=== PATIENT | female | born 1955 | race Caucasian/White ===

== ENCOUNTER 2018-04-02 07:26 | Inpatient (IN) | payer BC, OTHER ==
[~2018-04-02] VITALS: Ht 160 cm; Wt 86.3 kg
--- NOTE | 2018-04-02 07:26 | NUR ---
Pt BIB [facility] as transfer from [place]. Pt initially c/o SOB at home x3 days with hx of asthma and DM. Pt in severe resp distress on arrival to [facility]. Pt was intubated at 0255 with 8.0 ETT. Pt diagnosed with Multifocal PNA as well as DKA, then transfered to [facility]. On arrival to [facility] ED pt incontinent of liquid stool. Large amount stool cleaned from pt and all linens changed. Stool sample walked to lab. Pt with coffee ground drainage noted from NG tube as well. NG tube placement confirmed and connected to low continuous suction per order. Pt's cross draining tea colored urine, sample sent to lab. Pt with multiple small wounds diffusely over bilat legs, perineum and buttocks. Pt appears to be tolerating the vent well, lung sounds coarse at the bases. Pt appears well sedated on arrival. Report from REACH RN. Dr. Mcdaniel at bedside to evaluate pt.
[2018-04-02] MEDS ORDERED: MIDAZOLAM 1 MG/ML, 2ML ONE (07:39)
[2018-04-02] MEDS ORDERED: VECURONIUM 10 MG ONE (07:39)
[2018-04-02] MEDS ORDERED: PROPOFOL 100 ML IV ONE (07:39)
[2018-04-02] MEDS ORDERED: PROPOFOL 100 ML IV PRN (07:42)
[2018-04-02] MEDS ORDERED: VECURONIUM 10 MG IVPush ONE (08:00)
[2018-04-02] MEDS ORDERED: MIDAZOLAM 1 MG/ML, 5ML IVP ONE (08:00)
[2018-04-02] MEDS ORDERED: SODIUM CHLORIDE FLUSH 10ML SYR IVF ONE (08:00)
[2018-04-02] MEDS ORDERED: ATOR20TA PO (08:33)
[2018-04-02] MEDS ORDERED: SPIR100T4 PO (08:33)
[2018-04-02] MEDS ORDERED: INSU100V11 SQ (08:33)
[2018-04-02] MEDS ORDERED: INSU100I43 SQ (08:33)
[2018-04-02] MEDS ORDERED: LEVO125T5 PO (08:33)
[2018-04-02] MEDS ORDERED: FLUO40CA2 PO (08:33)
[2018-04-02] MEDS ORDERED: LISI40TA PO (08:33)
[2018-04-02] MEDS ORDERED: LOSA50TA14 PO (08:33)
[2018-04-02 08:43] LABS: AMPHETAMINE SCREEN, URINE Negative (Negative); BARBITURATE SCREEN, URINE Negative (Negative); BENZODIAZEPINE SCREEN, URINE Positive (Negative); CANNABINOID SCREEN, URINE Negative (Negative); COCAINE SCREEN, URINE Negative (Negative); METHADONE SCREEN, URINE Negative (Negative); OPIATE SCREEN, URINE Negative (Negative)
--- NOTE | 2018-04-02 08:43 | NUR ---
Med requested from pharmacy. Pt resting in bed with eyes closed, appears well sedated, tolerating vent well.
[2018-04-02 08:44] LABS: CULTURE INDICATED? YES; MICROSCOPIC INDICATED
[2018-04-02] MEDS ORDERED: PANTOPRAZOLE 80 MG in SODIUM CHLORIDE 0.9% 50 ML IVPB ONE (09:00)
[2018-04-02] MEDS ORDERED: PANTOPRAZOLE 80 MG in SODIUM CHLORIDE 0.9% 100 ML IV SCH (09:00)
--- NOTE | 2018-04-02 09:05 | NUR ---
Spoke with lab sample room regarding blood samples. Lab is sending second laborer cook house to attempt to collect blood samples.
--- NOTE | 2018-04-02 09:13 | NUR ---
Discussed pt's FSBS with Dr. Mcdaniel. No insulin gtt needed per Dr. Mcdaniel. Pt continues resting in bed, NADN, tolerating vent well.
[2018-04-02 09:15] LABS: CLOSTRIDIUM DIFFICILE ANTIGEN NEGATIVE; CLOSTRIDIUM DIFFICILE TOXIN NEGATIVE (Negative)
--- NOTE | 2018-04-02 09:26 | NUR ---
information technology director at bedside to attempt to collect blood sample.
--- NOTE | 2018-04-02 09:49 | NUR ---
Report called to Taylor RETANA in CCU. Floor ready for pt transport.
[2018-04-02] MEDS ORDERED: SODIUM CHLORIDE 0.9% 1,000 ML IV SCH (09:54)
--- NOTE | 2018-04-02 09:56 | NUR ---
Pt appears restless in bed. Propofol gtt increased per MAR. pharmacy picking tech successful at obtaining blood sample.
[2018-04-02] MEDS ORDERED: POLYETHYLENE GLYCOL 17 GM PACKET PO PRN (10:00)
[2018-04-02] MEDS ORDERED: BISACODYL 10 MG SUPP PR PRN (10:00)
[2018-04-02] MEDS ORDERED: DOCUSATE 100 MG CAPSULE PO PRN (10:00)
[2018-04-02 10:15] LABS: MD YES; MEAN CORPUSCULAR HEMOGLOBIN 29.6 pg (27.0-34.8); MEAN CORPUSCULAR HGB CONC 32.9 g/dL (32.4-35.8); MEAN PLATELET VOLUME 9.2 fL (7.4-10.4); PLATELET COUNT 392 x10^3/uL (130-400); RED BLOOD COUNT 5.27 x10^6/uL (3.82-5.3); RED CELL DISTRIBUTION WIDTH 13.4 % (9.6-15.2)
[2018-04-02 10:16] LABS: ALANINE AMINOTRANSFERASE 93 U/L (12-78); ALBUMIN 2.8 g/dL (3.4-5.0); ANION GAP 13 mmol/L (5-15); CALCIUM 8.1 mg/dL (8.5-10.1); CHLORIDE 112 mmol/L (98-107); CREATININE 1.91 mg/dL (0.55-1.02)
[2018-04-02 10:17] LABS: BAND#(MANUAL) 1.54 x10^3/uL; BANDS%(MANUAL) 4 % (0-7); LYMPH#(MANUAL) 0.39 x10^3/uL (1-3.4); LYMPHS% (MANUAL) 1 % (22-44); MONOS#(MANUAL) 1.54 x10^3/uL (0.3-2.7); MONOS% (MANUAL) 4 % (2-9); SEG#(MANUAL) 35.04 x10^3/uL (1.8-6.8); SEGS% (MANUAL) 91 % (42-75)
[2018-04-02 10:18] LABS: ALKALINE PHOSPHATASE 182 U/L (45-117); BILIRUBIN,TOTAL 0.6 mg/dL (0.2-1.0); TOTAL PROTEIN 6.8 g/dL (6.4-8.2)
[2018-04-02 10:18] LABS: <PLATELET ESTIMATE> ADEQUATE; <PLT MORPHOLOGY> NORMAL PLT MORPH; <RBC MORPHOLOGY> NORMAL
[2018-04-02] MEDS ORDERED: SODIUM BICARB 8.4%, 50ML SYRINGE ONE (10:49)
[2018-04-02] MEDS ORDERED: CALCIUM GLUCONATE 9.2 MEQ in SODIUM CHLORIDE 0.9% 100 ML IV STA (10:53)
[2018-04-02] MEDS ORDERED: SODIUM BICARBONATE 1 MEQ/ML, 50ML VIAL IVPush ONE ×2 (11:00)
[2018-04-02] MEDS: REGULAR INSULIN 62.5 UNITS in SODIUM CHLORIDE 0.9% 249.375 ML IV PRN ×2 (11:28→20:18)
[2018-04-02] MEDS ORDERED: NOREPINEPHRINE 4 MG in SODIUM CHLORIDE 0.9% 246 ML IV PRN ×2 (11:54→12:30)
[2018-04-02] MEDS ORDERED: PHARMACY MAY ADJ FOR RENAL FX MC SCH (12:00)
[2018-04-02 12:23] LABS: ANION GAP 10 mmol/L (5-15); CALCIUM 8.7 mg/dL (8.5-10.1); CHLORIDE 110 mmol/L (98-107); CREATININE 1.97 mg/dL (0.55-1.02)
[2018-04-02] MEDS: SODIUM BICARBONATE 8.4% 150 MEQ in DEXTROSE 5% 1,000 ML IV SCH ×2 (12:28→21:29)
[2018-04-02] MEDS: DOXYCYCLINE 100 MG in DEXTROSE 5% 250 ML IV SCH ×2 (12:28→23:35)
[2018-04-02] MEDS ORDERED: VASOPRESSIN 100 UNIT in SODIUM CHLORIDE 0.9% 495 ML IV PRN (12:30)
[2018-04-02 12:46] LABS: RAPID INFLUENZA A Negative (Negative); RAPID INFLUENZA B Negative (Negative)
[2018-04-02] MEDS: methylPREDNISolone SOD SUCC 125 MG/2 ML IVPush SCH ×3 (13:05→21:28)
[2018-04-02] MEDS: CEFTRIAXONE PMX 2GM/50ML 50 ML IV SCH (15:45)
[2018-04-02 16:33] LABS: ANION GAP 9 mmol/L (5-15); CALCIUM 7.8 mg/dL (8.5-10.1); CHLORIDE 109 mmol/L (98-107); CREATININE 1.81 mg/dL (0.55-1.02)
[2018-04-02 17:17] VITALS: BP 137/68
[2018-04-02] MEDS: PROPOFOL 100 ML IV PRN (17:43)
[2018-04-02] MEDS: PANTOPRAZOLE 80 MG in SODIUM CHLORIDE 0.9% 100 ML IV SCH (19:40)
[2018-04-02 20:42] LABS: ANION GAP 8 mmol/L (5-15); CALCIUM 7.8 mg/dL (8.5-10.1); CHLORIDE 111 mmol/L (98-107); CREATININE 1.55 mg/dL (0.55-1.02)
[2018-04-02] MEDS ORDERED: SODIUM CHLORIDE 0.9% 1,000ML IVBOLUS ONE (22:00)
[2018-04-03] MEDS: MORPHINE SULFATE 4 MG/ML, 1ML IVPush PRN ×3 (00:08→10:51)
[2018-04-03] MEDS: LIDOCAINE-MPF 1%, 2ML ENDO PRN ×3 (00:20→21:40)
[2018-04-03 00:41] LABS: ANION GAP 8 mmol/L (5-15); CALCIUM 7.4 mg/dL (8.5-10.1); CHLORIDE 113 mmol/L (98-107); CREATININE 1.22 mg/dL (0.55-1.02)
[2018-04-03] MEDS: REGULAR INSULIN 62.5 UNITS in SODIUM CHLORIDE 0.9% 249.375 ML IV PRN ×2 (01:26→12:54)
[2018-04-03] MEDS: PROPOFOL 100 ML IV PRN ×5 (01:26→19:36)
[2018-04-03 04:00] VITALS: BP 138/66
[2018-04-03] MEDS: methylPREDNISolone SOD SUCC 125 MG/2 ML IVPush SCH ×4 (04:10→21:45)
[2018-04-03 04:47] LABS: MEAN CORPUSCULAR HEMOGLOBIN 30.6 pg (27.0-34.8); MEAN CORPUSCULAR HGB CONC 34.8 g/dL (32.4-35.8); MEAN PLATELET VOLUME 9.5 fL (7.4-10.4); PLATELET COUNT 291 x10^3/uL (130-400); RED BLOOD COUNT 3.75 x10^6/uL (3.82-5.3); RED CELL DISTRIBUTION WIDTH 13.4 % (9.6-15.2)
[2018-04-03 04:51] LABS: ALANINE AMINOTRANSFERASE 53 U/L (12-78); ALBUMIN 2.1 g/dL (3.4-5.0); ANION GAP 7 mmol/L (5-15); CALCIUM 7.9 mg/dL (8.5-10.1); CHLORIDE 110 mmol/L (98-107); CREATININE 1.05 mg/dL (0.55-1.02)
[2018-04-03 05:02] LABS: ALKALINE PHOSPHATASE 104 U/L (45-117); BILIRUBIN,TOTAL 0.2 mg/dL (0.2-1.0); THYROID STIMULATING HORMONE 0.211 mIU/L (0.358-3.740); TOTAL PROTEIN 5.3 g/dL (6.4-8.2)
[2018-04-03] MEDS: PANTOPRAZOLE 80 MG in SODIUM CHLORIDE 0.9% 100 ML IV SCH ×2 (05:20→17:16)
[2018-04-03 05:45] LABS: MD YES
[2018-04-03 05:46] LABS: BAND#(MANUAL) 0.46 x10^3/uL; BANDS%(MANUAL) 2 % (0-7); MONOS#(MANUAL) 0.46 x10^3/uL (0.3-2.7); MONOS% (MANUAL) 2 % (2-9)
[2018-04-03 05:47] LABS: <PLATELET ESTIMATE> ADEQUATE; <PLT MORPHOLOGY> NORMAL PLT MORPH; <RBC MORPHOLOGY> NORMAL; LYMPH#(MANUAL) 0.68 x10^3/uL (1-3.4); LYMPHS% (MANUAL) 3 % (22-44); SEGS% (MANUAL) 93 % (42-75)
[2018-04-03] MEDS: SODIUM BICARBONATE 8.4% 150 MEQ in DEXTROSE 5% 1,000 ML IV SCH (08:09)
[2018-04-03] MEDS: CEFTRIAXONE PMX 2GM/50ML 50 ML IV SCH (09:40)
[2018-04-03 10:15] LABS: ANION GAP 9 mmol/L (5-15); CALCIUM 7.9 mg/dL (8.5-10.1); CHLORIDE 108 mmol/L (98-107); CREATININE 1.04 mg/dL (0.55-1.02)
[2018-04-03] MEDS: DOXYCYCLINE 100 MG in DEXTROSE 5% 250 ML IV SCH ×2 (10:54→23:18)
[2018-04-03] MEDS ORDERED: SODIUM BICARBONATE 8.4% 150 MEQ in DEXTROSE 5% 1,000 ML IV SCH (11:00)
[2018-04-03] MEDS ORDERED: MAGNESIUM SULFATE 4 GM in SODIUM CHLORIDE 0.9% 100 ML IV ONE (15:30)
[2018-04-03] MEDS ORDERED: MAGNESIUM SULFATE PMX 4GM/100M 100 ML IVPB ONE (15:30)
[2018-04-03] MEDS: D5%-0.45% NACL 1,000 ML IV SCH (15:40)
[2018-04-03] MEDS ORDERED: GLUCAGON 1 MG IM PRN (19:30)
[2018-04-03] MEDS ORDERED: DEXTROSE 4 GM TAB.CHEW PO PRN (19:30)
[2018-04-03] MEDS: INSULIN LISPRO 100 UNITS/ML, PEN SQ-INSULIN SCH (19:30)
[2018-04-03] MEDS ORDERED: DEXTROSE 50%, 50ML SYRINGE IVPush PRN (19:30)
[2018-04-03] MEDS: SODIUM CHLORIDE FLUSH 10ML SYR IVF SCH (20:28)
[2018-04-03] MEDS: INSULIN GLARGINE 100 UNITS/ML, PEN SQ-INSULIN SCH (20:28)
[2018-04-03] MEDS: FENTANYL PF 100 MCG/2ML IVPush PRN (21:45)
[2018-04-04] MEDS: LIDOCAINE-MPF 1%, 2ML ENDO PRN ×4 (01:00→11:18)
[2018-04-04] MEDS: FENTANYL PF 100 MCG/2ML IVPush PRN ×3 (01:03→16:15)
[2018-04-04] MEDS: PROPOFOL 100 ML IV PRN ×6 (01:18→22:23)
[2018-04-04] MEDS: INSULIN LISPRO 100 UNITS/ML, PEN SQ-INSULIN SCH ×6 (02:02→22:23)
[2018-04-04] MEDS: PANTOPRAZOLE 80 MG in SODIUM CHLORIDE 0.9% 100 ML IV SCH ×3 (02:51→22:58)
[2018-04-04] MEDS: methylPREDNISolone SOD SUCC 125 MG/2 ML IVPush SCH ×2 (03:53→09:41)
[2018-04-04 04:00] VITALS: BP 161/89
[2018-04-04] MEDS: D5%-0.45% NACL 1,000 ML IV SCH (04:21)
[2018-04-04 04:35] LABS: MEAN CORPUSCULAR HEMOGLOBIN 29.7 pg (27.0-34.8); MEAN CORPUSCULAR HGB CONC 33.3 g/dL (32.4-35.8); MEAN CORPUSCULAR VOLUME 89.1 fL (80-100); MEAN PLATELET VOLUME 9.5 fL (7.4-10.4); PLATELET COUNT 261 x10^3/uL (130-400); RED BLOOD COUNT 3.44 x10^6/uL (3.82-5.3); RED CELL DISTRIBUTION WIDTH 13.7 % (9.6-15.2)
[2018-04-04 04:47] LABS: ALBUMIN 2.1 g/dL (3.4-5.0); ANION GAP 7 mmol/L (5-15); CALCIUM 7.4 mg/dL (8.5-10.1); CHLORIDE 105 mmol/L (98-107)
[2018-04-04 05:00] LABS: ALANINE AMINOTRANSFERASE 46 U/L (12-78); ALKALINE PHOSPHATASE 99 U/L (45-117); BILIRUBIN,TOTAL 0.2 mg/dL (0.2-1.0); CREATININE 1.14 mg/dL (0.55-1.02); THYROID STIMULATING HORMONE 0.124 mIU/L (0.358-3.740); TOTAL PROTEIN 5.4 g/dL (6.4-8.2)
[2018-04-04] MEDS: LEVOTHYROXINE 100 MCG TABLET PO SCH (05:37)
[2018-04-04 05:54] LABS: BASOPHILS # (AUTO) 0.02 x10^3/uL (0-0.1); BASOPHILS % (AUTO) 0 % (0-1); EOSINOPHILS % (AUTO) 0 % (1-7); LYMPHOCYTES # (AUTO) 0.65 x10^3/uL (1-3.4); LYMPHOCYTES % (AUTO) 4 % (22-44); MD SCAN; MONOCYTES # (AUTO) 0.89 x10^3/uL (0.2-0.8); MONOCYTES % (AUTO) 5 % (2-9); NEUTROPHILS # (AUTO) 16.83 x10^3/uL (1.8-6.8); NEUTROPHILS % (AUTO) 92 % (42-75)
[2018-04-04] MEDS: INSULIN GLARGINE 100 UNITS/ML, PEN SQ-INSULIN SCH ×2 (07:43→20:08)
[2018-04-04] MEDS: SODIUM CHLORIDE FLUSH 10ML SYR IVF SCH ×2 (09:41→20:08)
--- NOTE | 2018-04-04 11:12 | NUR ---
TF GOAL: w/ propofol: PROMOTE @ 50ML/HR off propofol: PROMOTE @ 55ML/HR
[2018-04-04] MEDS: DOXYCYCLINE 100 MG in DEXTROSE 5% 250 ML IV SCH ×2 (11:43→22:58)
[2018-04-04] MEDS: CEFTRIAXONE PMX 2GM/50ML 50 ML IV SCH (11:59)
[2018-04-04] MEDS ORDERED: FUROSEMIDE 20 MG/2 ML IV STA (13:34)
[2018-04-04] MEDS: methylPREDNISolone SOD SUCC 40 MG/ML IVPush SCH ×2 (16:13→22:23)
[2018-04-05] MEDS: FENTANYL PF 100 MCG/2ML IVPush PRN ×5 (01:54→20:12)
[2018-04-05] MEDS: INSULIN LISPRO 100 UNITS/ML, PEN SQ-INSULIN SCH ×6 (01:54→21:57)
[2018-04-05] MEDS: PROPOFOL 100 ML IV PRN ×6 (01:56→21:55)
[2018-04-05 04:00] VITALS: BP 139/64
[2018-04-05 04:47] LABS: MEAN CORPUSCULAR HEMOGLOBIN 31.1 pg (27.0-34.8); MEAN CORPUSCULAR HGB CONC 35.2 g/dL (32.4-35.8); MEAN CORPUSCULAR VOLUME 88.3 fL (80-100); MEAN PLATELET VOLUME 9.6 fL (7.4-10.4); PLATELET COUNT 235 x10^3/uL (130-400); RED CELL DISTRIBUTION WIDTH 13.9 % (9.6-15.2)
[2018-04-05 04:57] LABS: ANION GAP 6 mmol/L (5-15); CALCIUM 7.4 mg/dL (8.5-10.1); CHLORIDE 105 mmol/L (98-107)
[2018-04-05 05:03] LABS: CREATININE 0.84 mg/dL (0.55-1.02); TRIGLYCERIDES 211 mg/dL (50-200)
[2018-04-05 05:43] LABS: BASOPHILS # (AUTO) 0.01 x10^3/uL (0-0.1); BASOPHILS % (AUTO) 0 % (0-1); EOSINOPHILS % (AUTO) 0 % (1-7); LYMPHOCYTES # (AUTO) 0.71 x10^3/uL (1-3.4); LYMPHOCYTES % (AUTO) 4 % (22-44); MD SCAN; MONOCYTES # (AUTO) 0.51 x10^3/uL (0.2-0.8); MONOCYTES % (AUTO) 3 % (2-9); NEUTROPHILS % (AUTO) 92 % (42-75)
[2018-04-05] MEDS: LEVOTHYROXINE 100 MCG TABLET PO SCH (06:04)
[2018-04-05] MEDS: methylPREDNISolone SOD SUCC 40 MG/ML IVPush SCH ×2 (06:04→09:42)
[2018-04-05] MEDS: INSULIN GLARGINE 100 UNITS/ML, PEN SQ-INSULIN SCH ×2 (08:17→20:12)
[2018-04-05] MEDS: PANTOPRAZOLE 40 MG IV IVPush SCH ×2 (09:41→20:11)
[2018-04-05] MEDS: SODIUM CHLORIDE FLUSH 10ML SYR IVF SCH ×2 (09:41→20:13)
[2018-04-05] MEDS: ASPIRIN 81 MG TABLET CHEW PO SCH (09:42)
[2018-04-05] MEDS: CEFTRIAXONE PMX 2GM/50ML 50 ML IV SCH (10:24)
[2018-04-05] MEDS ORDERED: ALBUTEROL SULFATE 2.5 MG/3 ML ONE ×2 (10:51→14:42)
[2018-04-05] MEDS: DOXYCYCLINE 100 MG in DEXTROSE 5% 250 ML IV SCH ×2 (11:57→23:44)
[2018-04-05] MEDS: ALBUTEROL SULFATE 2.5 MG/3 ML INLINE SCH ×3 (15:27→22:14)
[2018-04-05] MEDS: LINEZOLID PMX 600MG/300ML 300 ML IV SCH (17:39)
[2018-04-05] MEDS: ATORVASTATIN 80 MG TABLET PO SCH (20:11)
[2018-04-06] MEDS: PROPOFOL 100 ML IV PRN ×5 (00:37→21:03)
[2018-04-06] MEDS: FENTANYL PF 100 MCG/2ML IVPush PRN ×5 (00:37→20:27)
[2018-04-06] MEDS: INSULIN LISPRO 100 UNITS/ML, PEN SQ-INSULIN SCH ×5 (02:00→22:56)
[2018-04-06] MEDS: ALBUTEROL SULFATE 2.5 MG/3 ML INLINE SCH ×5 (02:20→23:00)
[2018-04-06 04:00] VITALS: BP 124/53
[2018-04-06 04:45] LABS: MEAN CORPUSCULAR HEMOGLOBIN 30.5 pg (27.0-34.8); MEAN CORPUSCULAR HGB CONC 34.2 g/dL (32.4-35.8); MEAN PLATELET VOLUME 9.3 fL (7.4-10.4); PLATELET COUNT 248 x10^3/uL (130-400); RED CELL DISTRIBUTION WIDTH 13.2 % (9.6-15.2)
[2018-04-06] MEDS: LINEZOLID PMX 600MG/300ML 300 ML IV SCH (04:50)
[2018-04-06 04:59] LABS: ALBUMIN 2.1 g/dL (3.4-5.0); ANION GAP 7 mmol/L (5-15); CALCIUM 7.7 mg/dL (8.5-10.1); CHLORIDE 107 mmol/L (98-107)
[2018-04-06] MEDS: LEVOTHYROXINE 100 MCG TABLET PO SCH (05:00)
[2018-04-06 05:04] LABS: ALANINE AMINOTRANSFERASE 58 U/L (12-78); ALKALINE PHOSPHATASE 100 U/L (45-117); BILIRUBIN,TOTAL 0.2 mg/dL (0.2-1.0); CHOL/HDL RATIO 3.9; CHOLESTEROL, TOTAL 121 mg/dL (140-239); CREATININE 0.87 mg/dL (0.55-1.02); HDL CHOL % 26 % (28-40); HDL CHOLESTEROL (DIRECT) 31 mg/dL (40-60); LDL CHOLESTEROL,CALCULATED 47 mg/dL (54-169); LDL/HDL RATIO 1.5 (0.5-3.0); TOTAL PROTEIN 5.3 g/dL (6.4-8.2); TRIGLYCERIDES 213 mg/dL (50-200); VLDL CHOLESTEROL 43 mg/dL (0-25)
[2018-04-06 05:44] LABS: BASOPHILS # (AUTO) 0.09 x10^3/uL (0-0.1); BASOPHILS % (AUTO) 1 % (0-1); EOSINOPHILS # (AUTO) 0.02 x10^3/uL (0-0.4); EOSINOPHILS % (AUTO) 0 % (1-7); LYMPHOCYTES # (AUTO) 1.48 x10^3/uL (1-3.4); LYMPHOCYTES % (AUTO) 8 % (22-44); MD SCAN; MONOCYTES # (AUTO) 0.57 x10^3/uL (0.2-0.8); MONOCYTES % (AUTO) 3 % (2-9); NEUTROPHILS # (AUTO) 15.56 x10^3/uL (1.8-6.8); NEUTROPHILS % (AUTO) 88 % (42-75)
[2018-04-06] MEDS: INSULIN GLARGINE 100 UNITS/ML, PEN SQ-INSULIN SCH ×2 (08:33→20:16)
[2018-04-06] MEDS: ASPIRIN 81 MG TABLET CHEW PO SCH (08:34)
[2018-04-06] MEDS: methylPREDNISolone SOD SUCC 40 MG/ML IVPush SCH (08:34)
[2018-04-06] MEDS: SODIUM CHLORIDE FLUSH 10ML SYR IVF SCH ×2 (08:34→20:18)
[2018-04-06] MEDS: PANTOPRAZOLE 40 MG IV IVPush SCH ×2 (08:34→20:21)
[2018-04-06] MEDS: DOXYCYCLINE 100 MG in DEXTROSE 5% 250 ML IV SCH ×2 (11:59→23:43)
[2018-04-06] MEDS ORDERED: MAGNESIUM SULFATE PMX 2GM/50ML 50 ML IV ONE (17:00)
[2018-04-06] MEDS: ATORVASTATIN 80 MG TABLET PO SCH (20:21)
[2018-04-07] MEDS: PROPOFOL 100 ML IV PRN ×2 (01:26→04:59)
[2018-04-07] MEDS: ALBUTEROL SULFATE 2.5 MG/3 ML INLINE SCH ×3 (03:00→10:13)
[2018-04-07 04:12] VITALS: BP 129/49
[2018-04-07] MEDS: INSULIN LISPRO 100 UNITS/ML, PEN SQ-INSULIN SCH ×4 (04:18→20:48)
[2018-04-07 04:39] LABS: ALANINE AMINOTRANSFERASE 133 U/L (12-78); ALBUMIN 2.1 g/dL (3.4-5.0); ANION GAP 8 mmol/L (5-15); CALCIUM 8.1 mg/dL (8.5-10.1); CHLORIDE 109 mmol/L (98-107); CREATININE 0.92 mg/dL (0.55-1.02)
[2018-04-07 04:41] LABS: ALKALINE PHOSPHATASE 114 U/L (45-117); BILIRUBIN,TOTAL 0.3 mg/dL (0.2-1.0); MEAN CORPUSCULAR HEMOGLOBIN 30.5 pg (27.0-34.8); MEAN CORPUSCULAR HGB CONC 34.4 g/dL (32.4-35.8); MEAN CORPUSCULAR VOLUME 88.6 fL (80-100); MEAN PLATELET VOLUME 9.4 fL (7.4-10.4); PLATELET COUNT 241 x10^3/uL (130-400); RED CELL DISTRIBUTION WIDTH 13.5 % (9.6-15.2); TOTAL PROTEIN 5.5 g/dL (6.4-8.2)
[2018-04-07] MEDS: FENTANYL PF 100 MCG/2ML IVPush PRN (04:55)
[2018-04-07] MEDS: LEVOTHYROXINE 100 MCG TABLET PO SCH (05:00)
[2018-04-07 05:46] LABS: BASOPHILS # (AUTO) 0.04 x10^3/uL (0-0.1); BASOPHILS % (AUTO) 0 % (0-1); EOSINOPHILS # (AUTO) 0.06 x10^3/uL (0-0.4); EOSINOPHILS % (AUTO) 0 % (1-7); LYMPHOCYTES % (AUTO) 8 % (22-44); MD SCAN; MONOCYTES # (AUTO) 0.44 x10^3/uL (0.2-0.8); MONOCYTES % (AUTO) 3 % (2-9); NEUTROPHILS # (AUTO) 15.57 x10^3/uL (1.8-6.8); NEUTROPHILS % (AUTO) 90 % (42-75)
[2018-04-07] MEDS ORDERED: hydrOXyzine 10 MG/5 ML ORAL SOL PO PRN (08:00)
[2018-04-07] MEDS: ASPIRIN 81 MG TABLET CHEW PO SCH (08:14)
[2018-04-07] MEDS: methylPREDNISolone SOD SUCC 40 MG/ML IVPush SCH (08:14)
[2018-04-07] MEDS: PANTOPRAZOLE 40 MG IV IVPush SCH ×2 (08:14→20:29)
[2018-04-07] MEDS: SODIUM CHLORIDE FLUSH 10ML SYR IVF SCH ×2 (08:14→20:29)
[2018-04-07] MEDS: INSULIN GLARGINE 100 UNITS/ML, PEN SQ-INSULIN SCH ×2 (08:54→20:48)
[2018-04-07] MEDS: DOXYCYCLINE 100 MG in DEXTROSE 5% 250 ML IV SCH ×2 (11:06→22:37)
[2018-04-07] MEDS ORDERED: ALBUTEROL/IPRATROPIUM 2.5MG/0.5MG, 3 ML NPPB SCH (14:30)
[2018-04-07] MEDS ORDERED: ALBUTEROL/IPRATROPIUM 2.5MG/0.5MG, 3 ML NPPB PRN (14:30)
[2018-04-07] MEDS: ALBUTEROL SULFATE 2.5 MG/3 ML NPPB SCH ×3 (14:50→22:55)
[2018-04-07] MEDS ORDERED: ALBUTEROL SULFATE 2.5 MG/3 ML NPPB PRN (15:00)
[2018-04-07] MEDS: ENOXAPARIN 40 MG/0.4 ML SQ SCH (20:28)
[2018-04-07] MEDS: ATORVASTATIN 80 MG TABLET PO SCH (20:29)
[2018-04-07] MEDS ORDERED: ZIPRASIDONE 20 MG INJ IM ONE (22:30)
[2018-04-08] MEDS: ALBUTEROL SULFATE 2.5 MG/3 ML NPPB SCH ×6 (03:00→23:00)
[2018-04-08 04:00] VITALS: BP 152/62
[2018-04-08] MEDS: INSULIN LISPRO 100 UNITS/ML, PEN SQ-INSULIN SCH ×4 (04:00→22:00)
[2018-04-08 04:54] LABS: ALANINE AMINOTRANSFERASE 123 U/L (12-78); ALBUMIN 2.2 g/dL (3.4-5.0); ANION GAP 8 mmol/L (5-15); CALCIUM 8.9 mg/dL (8.5-10.1); CHLORIDE 108 mmol/L (98-107); CREATININE 0.82 mg/dL (0.55-1.02); TRIGLYCERIDES 144 mg/dL (50-200)
[2018-04-08 04:56] LABS: MEAN CORPUSCULAR HEMOGLOBIN 30.5 pg (27.0-34.8); MEAN CORPUSCULAR HGB CONC 34.3 g/dL (32.4-35.8); MEAN CORPUSCULAR VOLUME 89.1 fL (80-100); MEAN PLATELET VOLUME 9.5 fL (7.4-10.4); PLATELET COUNT 244 x10^3/uL (130-400); RED BLOOD COUNT 3.57 x10^6/uL (3.82-5.3); RED CELL DISTRIBUTION WIDTH 13.7 % (9.6-15.2)
[2018-04-08 04:57] LABS: ALKALINE PHOSPHATASE 129 U/L (45-117); BILIRUBIN,TOTAL 0.4 mg/dL (0.2-1.0)
[2018-04-08 05:33] LABS: BASOPHILS % (AUTO) 0 % (0-1); EOSINOPHILS # (AUTO) 0.14 x10^3/uL (0-0.4); EOSINOPHILS % (AUTO) 1 % (1-7); LYMPHOCYTES # (AUTO) 1.35 x10^3/uL (1-3.4); LYMPHOCYTES % (AUTO) 6 % (22-44); MD SCAN; MONOCYTES % (AUTO) 1 % (2-9); NEUTROPHILS # (AUTO) 20.28 x10^3/uL (1.8-6.8); NEUTROPHILS % (AUTO) 93 % (42-75)
[2018-04-08] MEDS: LEVOTHYROXINE 100 MCG TABLET PO SCH (05:42)
[2018-04-08] MEDS ORDERED: MAGNESIUM SULFATE PMX 4GM/100M 100 ML IVPB ONE (08:00)
[2018-04-08] MEDS: SODIUM CHLORIDE FLUSH 10ML SYR IVF SCH ×2 (09:00→21:00)
[2018-04-08] MEDS: INSULIN GLARGINE 100 UNITS/ML, PEN SQ-INSULIN SCH ×2 (09:00→21:00)
[2018-04-08] MEDS: FUROSEMIDE 20 MG/2 ML IV SCH (09:22)
[2018-04-08] MEDS: PANTOPRAZOLE 40 MG IV IVPush SCH ×2 (09:23→22:36)
[2018-04-08] MEDS: ASPIRIN 81 MG TABLET CHEW PO SCH (09:23)
[2018-04-08] MEDS: CEFTRIAXONE PMX 1GM/50ML 50 ML IV SCH (09:26)
[2018-04-08] MEDS: METRONIDAZOLE PMX 500MG/100ML 100 ML IV SCH ×3 (12:48→22:35)
[2018-04-08] MEDS: ACETAMINOPHEN 325 MG TABLET PO PRN (12:48)
--- NOTE | 2018-04-08 13:33 | NUR ---
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 -Single Ice chips ok with staff, when alert and at 90 degrees -Aggressive oral care Addendum: 04/08/18 at 1333 by AUSTYN HAWKINS Amended: Links added.
[2018-04-08] MEDS: SPIRONOLACTONE 100 MG TABLET PO SCH (15:00)
[2018-04-08] MEDS ORDERED: SPIRONOLACTONE 50 MG TABLET ONE (16:59)
[2018-04-08] MEDS: FLUOXETINE HCL 20 MG CAPSULE PO SCH (17:02)
[2018-04-08] MEDS: METOPROLOL TARTRATE 25 MG TABLET PO SCH (17:02)
[2018-04-08] MEDS: ENOXAPARIN 40 MG/0.4 ML SQ SCH (22:35)
[2018-04-08] MEDS: ATORVASTATIN 80 MG TABLET PO SCH (22:36)
[2018-04-09] MEDS: ALBUTEROL SULFATE 2.5 MG/3 ML NPPB SCH ×3 (03:00→09:53)
[2018-04-09 04:00] VITALS: BP 149/59
[2018-04-09] MEDS: INSULIN LISPRO 100 UNITS/ML, PEN SQ-INSULIN SCH ×4 (04:00→21:57)
[2018-04-09] MEDS: METRONIDAZOLE PMX 500MG/100ML 100 ML IV SCH ×4 (04:19→21:31)
[2018-04-09 05:07] LABS: ALANINE AMINOTRANSFERASE 89 U/L (12-78); ALBUMIN 2.2 g/dL (3.4-5.0); ANION GAP 8 mmol/L (5-15); CALCIUM 8.6 mg/dL (8.5-10.1); CHLORIDE 102 mmol/L (98-107); CREATININE 0.77 mg/dL (0.55-1.02)
[2018-04-09 05:10] LABS: ALKALINE PHOSPHATASE 134 U/L (45-117); BASOPHILS # (AUTO) 0.01 x10^3/uL (0-0.1); BASOPHILS % (AUTO) 0 % (0-1); BILIRUBIN,TOTAL 0.8 mg/dL (0.2-1.0); EOSINOPHILS # (AUTO) 0.39 x10^3/uL (0-0.4); EOSINOPHILS % (AUTO) 2 % (1-7); LYMPHOCYTES % (AUTO) 8 % (22-44); MD NO; MEAN CORPUSCULAR HEMOGLOBIN 30.6 pg (27.0-34.8); MEAN CORPUSCULAR HGB CONC 34.2 g/dL (32.4-35.8); MEAN CORPUSCULAR VOLUME 89.4 fL (80-100); MEAN PLATELET VOLUME 9.5 fL (7.4-10.4); MONOCYTES # (AUTO) 0.88 x10^3/uL (0.2-0.8); MONOCYTES % (AUTO) 5 % (2-9); NEUTROPHILS # (AUTO) 14.42 x10^3/uL (1.8-6.8); NEUTROPHILS % (AUTO) 85 % (42-75); PLATELET COUNT 275 x10^3/uL (130-400); RED BLOOD COUNT 3.49 x10^6/uL (3.82-5.3); RED CELL DISTRIBUTION WIDTH 13.2 % (9.6-15.2); TOTAL PROTEIN 6.2 g/dL (6.4-8.2)
[2018-04-09] MEDS: LEVOTHYROXINE 100 MCG TABLET PO SCH (05:38)
[2018-04-09] MEDS: METOPROLOL TARTRATE 25 MG TABLET PO SCH ×2 (05:38→21:47)
[2018-04-09] MEDS: PANTOPRAZOLE 40 MG IV IVPush SCH (08:47)
[2018-04-09] MEDS: CEFTRIAXONE PMX 1GM/50ML 50 ML IV SCH (08:48)
[2018-04-09] MEDS: FUROSEMIDE 20 MG/2 ML IV SCH (08:48)
[2018-04-09] MEDS: SODIUM CHLORIDE FLUSH 10ML SYR IVF SCH ×2 (08:49→22:05)
[2018-04-09] MEDS: ASPIRIN 81 MG TABLET CHEW PO SCH (09:08)
[2018-04-09] MEDS: FLUOXETINE HCL 20 MG CAPSULE PO SCH (09:08)
[2018-04-09] MEDS: SPIRONOLACTONE 100 MG TABLET PO SCH (09:08)
[2018-04-09] MEDS: INSULIN GLARGINE 100 UNITS/ML, PEN SQ-INSULIN SCH ×2 (09:15→22:01)
[2018-04-09] MEDS ORDERED: ZIPRASIDONE 20 MG INJ IM PRN (10:00)
[2018-04-09 20:21] VITALS: BP 146/64
[2018-04-09] MEDS: ATORVASTATIN 80 MG TABLET PO SCH (21:47)
[2018-04-09] MEDS: ENOXAPARIN 40 MG/0.4 ML SQ SCH (22:01)
[2018-04-10 01:13] VITALS: BP 144/77
[2018-04-10] MEDS: METRONIDAZOLE PMX 500MG/100ML 100 ML IV SCH ×4 (03:44→20:04)
[2018-04-10] MEDS: INSULIN LISPRO 100 UNITS/ML, PEN SQ-INSULIN SCH ×4 (03:44→20:18)
[2018-04-10] MEDS: ACETAMINOPHEN 325 MG TABLET PO PRN (04:18)
[2018-04-10 04:49] LABS: MEAN CORPUSCULAR HEMOGLOBIN 30.2 pg (27.0-34.8); MEAN CORPUSCULAR HGB CONC 33.9 g/dL (32.4-35.8); MEAN CORPUSCULAR VOLUME 89.2 fL (80-100); MEAN PLATELET VOLUME 8.9 fL (7.4-10.4); PLATELET COUNT 308 x10^3/uL (130-400); RED BLOOD COUNT 3.82 x10^6/uL (3.82-5.3); RED CELL DISTRIBUTION WIDTH 13.4 % (9.6-15.2)
[2018-04-10 04:58] LABS: ANION GAP 8 mmol/L (5-15); CALCIUM 8.6 mg/dL (8.5-10.1); CHLORIDE 102 mmol/L (98-107)
[2018-04-10 05:01] LABS: CREATININE 0.77 mg/dL (0.55-1.02)
[2018-04-10 05:11] LABS: BASOPHILS # (AUTO) 0.13 x10^3/uL (0-0.1); BASOPHILS % (AUTO) 1 % (0-1); EOSINOPHILS # (AUTO) 0.48 x10^3/uL (0-0.4); EOSINOPHILS % (AUTO) 3 % (1-7); LYMPHOCYTES # (AUTO) 1.16 x10^3/uL (1-3.4); LYMPHOCYTES % (AUTO) 7 % (22-44); MD SCAN; MONOCYTES # (AUTO) 1.05 x10^3/uL (0.2-0.8); MONOCYTES % (AUTO) 7 % (2-9); NEUTROPHILS # (AUTO) 13.15 x10^3/uL (1.8-6.8); NEUTROPHILS % (AUTO) 82 % (42-75)
[2018-04-10 05:15] VITALS: BP 152/74
[2018-04-10] MEDS: LEVOTHYROXINE 100 MCG TABLET PO SCH (05:16)
[2018-04-10] MEDS: METOPROLOL TARTRATE 25 MG TABLET PO SCH ×2 (05:17→18:19)
[2018-04-10 07:32] VITALS: BP 163/82
[2018-04-10] MEDS: CEFTRIAXONE PMX 1GM/50ML 50 ML IV SCH (07:50)
[2018-04-10] MEDS: SODIUM CHLORIDE FLUSH 10ML SYR IVF SCH ×2 (09:00→20:04)
[2018-04-10] MEDS: SPIRONOLACTONE 100 MG TABLET PO SCH (09:00)
[2018-04-10] MEDS: INSULIN GLARGINE 100 UNITS/ML, PEN SQ-INSULIN SCH ×2 (09:00→20:17)
[2018-04-10] MEDS ORDERED: SPIRONOLACTONE 50 MG TABLET ONE (09:39)
[2018-04-10] MEDS: FLUOXETINE HCL 20 MG CAPSULE PO SCH (09:41)
[2018-04-10] MEDS: ASPIRIN 81 MG TABLET CHEW PO SCH (09:41)
[2018-04-10 12:17] VITALS: BP 167/83
[2018-04-10 19:11] LABS: CLOSTRIDIUM DIFFICILE ANTIGEN NEGATIVE; CLOSTRIDIUM DIFFICILE TOXIN NEGATIVE (Negative)
[2018-04-10 19:59] VITALS: BP 154/79
[2018-04-10] MEDS: ENOXAPARIN 40 MG/0.4 ML SQ SCH (20:03)
[2018-04-10] MEDS: ATORVASTATIN 80 MG TABLET PO SCH (20:05)
[2018-04-10] MEDS ORDERED: LOPERAMIDE 2 MG CAPSULE PO ONE (22:00)
[2018-04-11] MEDS: METRONIDAZOLE PMX 500MG/100ML 100 ML IV SCH ×4 (02:44→21:15)
[2018-04-11 03:06] VITALS: BP 145/75
[2018-04-11] MEDS: ONDANSETRON 2MG/ML, 2ML IVPush PRN (03:12)
[2018-04-11] MEDS: INSULIN LISPRO 100 UNITS/ML, PEN SQ-INSULIN SCH ×4 (04:09→22:05)
[2018-04-11 04:29] LABS: BASOPHILS % (AUTO) 0 % (0-1); EOSINOPHILS # (AUTO) 0.23 x10^3/uL (0-0.4); EOSINOPHILS % (AUTO) 2 % (1-7); LYMPHOCYTES # (AUTO) 1.06 x10^3/uL (1-3.4); LYMPHOCYTES % (AUTO) 7 % (22-44); MD NO; MEAN CORPUSCULAR HEMOGLOBIN 29.7 pg (27.0-34.8); MEAN CORPUSCULAR HGB CONC 33.3 g/dL (32.4-35.8); MEAN CORPUSCULAR VOLUME 89.2 fL (80-100); MEAN PLATELET VOLUME 8.7 fL (7.4-10.4); MONOCYTES # (AUTO) 1.05 x10^3/uL (0.2-0.8); MONOCYTES % (AUTO) 7 % (2-9); NEUTROPHILS # (AUTO) 12.72 x10^3/uL (1.8-6.8); NEUTROPHILS % (AUTO) 85 % (42-75); PLATELET COUNT 335 x10^3/uL (130-400); RED BLOOD COUNT 3.57 x10^6/uL (3.82-5.3); RED CELL DISTRIBUTION WIDTH 13.4 % (9.6-15.2)
[2018-04-11 05:42] VITALS: BP 129/65
[2018-04-11] MEDS: LEVOTHYROXINE 100 MCG TABLET PO SCH (05:43)
[2018-04-11] MEDS: METOPROLOL TARTRATE 25 MG TABLET PO SCH ×2 (05:43→17:05)
[2018-04-11 07:07] VITALS: BP 129/69
[2018-04-11] MEDS ORDERED: REGADENOSON 0.4 MG/5 ML SYRINGE ONE (07:45)
[2018-04-11] MEDS: SODIUM CHLORIDE FLUSH 10ML SYR IVF SCH ×2 (09:00→21:15)
[2018-04-11] MEDS: CEFTRIAXONE PMX 1GM/50ML 50 ML IV SCH (09:33)
[2018-04-11] MEDS: INSULIN GLARGINE 100 UNITS/ML, PEN SQ-INSULIN SCH ×2 (09:37→22:05)
[2018-04-11] MEDS: ASPIRIN 81 MG TABLET CHEW PO SCH (10:31)
[2018-04-11] MEDS: FLUOXETINE HCL 20 MG CAPSULE PO SCH (10:32)
[2018-04-11] MEDS: SPIRONOLACTONE 100 MG TABLET PO SCH (10:32)
[2018-04-11 14:33] VITALS: BP 108/58
[2018-04-11 20:00] VITALS: BP 130/66
[2018-04-11] MEDS: ATORVASTATIN 80 MG TABLET PO SCH (21:15)
[2018-04-11] MEDS: ENOXAPARIN 40 MG/0.4 ML SQ SCH (21:15)
[2018-04-11] MEDS: ACETAMINOPHEN 325 MG TABLET PO PRN (23:37)
[2018-04-12 02:00] VITALS: BP 131/68
[2018-04-12] MEDS: METRONIDAZOLE PMX 500MG/100ML 100 ML IV SCH ×4 (03:14→20:47)
[2018-04-12] MEDS: METOPROLOL TARTRATE 25 MG TABLET PO SCH ×2 (05:32→19:16)
[2018-04-12] MEDS: LEVOTHYROXINE 100 MCG TABLET PO SCH (05:33)
[2018-04-12 05:55] LABS: BASOPHILS # (AUTO) 0.08 x10^3/uL (0-0.1); BASOPHILS % (AUTO) 1 % (0-1); EOSINOPHILS # (AUTO) 0.16 x10^3/uL (0-0.4); EOSINOPHILS % (AUTO) 1 % (1-7); LYMPHOCYTES # (AUTO) 2.03 x10^3/uL (1-3.4); LYMPHOCYTES % (AUTO) 12 % (22-44); MD NO; MEAN CORPUSCULAR HGB CONC 33.7 g/dL (32.4-35.8); MEAN CORPUSCULAR VOLUME 89.1 fL (80-100); MEAN PLATELET VOLUME 8.9 fL (7.4-10.4); MONOCYTES # (AUTO) 1.13 x10^3/uL (0.2-0.8); MONOCYTES % (AUTO) 7 % (2-9); NEUTROPHILS # (AUTO) 13.65 x10^3/uL (1.8-6.8); NEUTROPHILS % (AUTO) 80 % (42-75); PLATELET COUNT 365 x10^3/uL (130-400); RED BLOOD COUNT 3.48 x10^6/uL (3.82-5.3); RED CELL DISTRIBUTION WIDTH 13.3 % (9.6-15.2)
[2018-04-12 07:05] VITALS: BP 123/64
[2018-04-12] MEDS: ASPIRIN 81 MG TABLET CHEW PO SCH (08:32)
[2018-04-12] MEDS: SPIRONOLACTONE 100 MG TABLET PO SCH (08:32)
[2018-04-12] MEDS: FLUOXETINE HCL 20 MG CAPSULE PO SCH (08:33)
[2018-04-12] MEDS: INSULIN LISPRO 100 UNITS/ML, PEN SQ-INSULIN SCH ×4 (08:36→20:48)
[2018-04-12] MEDS: INSULIN GLARGINE 100 UNITS/ML, PEN SQ-INSULIN SCH ×2 (08:36→20:49)
[2018-04-12] MEDS: CEFTRIAXONE PMX 1GM/50ML 50 ML IV SCH (08:37)
[2018-04-12] MEDS: SODIUM CHLORIDE FLUSH 10ML SYR IVF SCH ×2 (08:37→20:49)
[2018-04-12 12:15] VITALS: BP 104/54
[2018-04-12 20:00] VITALS: BP 131/75
[2018-04-12] MEDS: ENOXAPARIN 40 MG/0.4 ML SQ SCH (20:47)
[2018-04-12] MEDS: ATORVASTATIN 80 MG TABLET PO SCH (20:48)
[2018-04-13 01:30] VITALS: BP 148/64
[2018-04-13] MEDS: METRONIDAZOLE PMX 500MG/100ML 100 ML IV SCH ×2 (04:20→11:28)
[2018-04-13 05:13] LABS: BASOPHILS # (AUTO) 0.05 x10^3/uL (0-0.1); BASOPHILS % (AUTO) 0 % (0-1); EOSINOPHILS # (AUTO) 0.11 x10^3/uL (0-0.4); EOSINOPHILS % (AUTO) 1 % (1-7); LYMPHOCYTES # (AUTO) 1.59 x10^3/uL (1-3.4); LYMPHOCYTES % (AUTO) 12 % (22-44); MD NO; MEAN CORPUSCULAR HGB CONC 33.5 g/dL (32.4-35.8); MEAN CORPUSCULAR VOLUME 89.6 fL (80-100); MEAN PLATELET VOLUME 8.4 fL (7.4-10.4); MONOCYTES % (AUTO) 7 % (2-9); NEUTROPHILS # (AUTO) 11.21 x10^3/uL (1.8-6.8); NEUTROPHILS % (AUTO) 81 % (42-75); PLATELET COUNT 333 x10^3/uL (130-400); RED BLOOD COUNT 3.36 x10^6/uL (3.82-5.3); RED CELL DISTRIBUTION WIDTH 13.5 % (9.6-15.2)
[2018-04-13 05:16] VITALS: BP 136/74
[2018-04-13] MEDS: LEVOTHYROXINE 100 MCG TABLET PO SCH (05:19)
[2018-04-13] MEDS: METOPROLOL TARTRATE 25 MG TABLET PO SCH ×2 (05:20→18:40)
[2018-04-13] MEDS: INSULIN LISPRO 100 UNITS/ML, PEN SQ-INSULIN SCH ×4 (07:00→20:36)
[2018-04-13 07:42] VITALS: BP 132/68
[2018-04-13] MEDS: SPIRONOLACTONE 100 MG TABLET PO SCH (09:11)
[2018-04-13] MEDS: SODIUM CHLORIDE FLUSH 10ML SYR IVF SCH ×2 (09:12→20:27)
[2018-04-13] MEDS: CEFTRIAXONE PMX 1GM/50ML 50 ML IV SCH (09:12)
[2018-04-13] MEDS: ASPIRIN 81 MG TABLET CHEW PO SCH (09:12)
[2018-04-13] MEDS: FLUOXETINE HCL 20 MG CAPSULE PO SCH (09:12)
[2018-04-13] MEDS: INSULIN GLARGINE 100 UNITS/ML, PEN SQ-INSULIN SCH ×2 (09:13→20:36)
[2018-04-13] MEDS: ACETAMINOPHEN 325 MG TABLET PO PRN (10:57)
[2018-04-13 13:34] VITALS: BP 112/53
[2018-04-13] MEDS: metroNIDAZOLE 500 MG TABLET PO SCH ×2 (17:09→20:27)
[2018-04-13 20:00] VITALS: BP 138/63
[2018-04-13] MEDS: ATORVASTATIN 80 MG TABLET PO SCH (20:27)
[2018-04-13] MEDS: ENOXAPARIN 40 MG/0.4 ML SQ SCH (20:27)
[2018-04-13] MEDS: CEFDINIR 300 MG CAPSULE PO SCH (20:27)
[2018-04-14 01:56] VITALS: BP 138/73
[2018-04-14 05:32] VITALS: BP 128/78
[2018-04-14] MEDS: LEVOTHYROXINE 100 MCG TABLET PO SCH (05:35)
[2018-04-14] MEDS: METOPROLOL TARTRATE 25 MG TABLET PO SCH ×2 (05:35→18:10)
[2018-04-14 08:02] VITALS: BP 132/78
[2018-04-14] MEDS: ONDANSETRON 2MG/ML, 2ML IVPush PRN (08:23)
[2018-04-14] MEDS: ASPIRIN 81 MG TABLET CHEW PO SCH (08:24)
[2018-04-14] MEDS: INSULIN GLARGINE 100 UNITS/ML, PEN SQ-INSULIN SCH ×2 (08:24→20:48)
[2018-04-14] MEDS: CEFDINIR 300 MG CAPSULE PO SCH ×2 (08:24→20:48)
[2018-04-14] MEDS: metroNIDAZOLE 500 MG TABLET PO SCH ×3 (08:24→20:48)
[2018-04-14] MEDS: FLUOXETINE HCL 20 MG CAPSULE PO SCH (08:24)
[2018-04-14] MEDS: INSULIN LISPRO 100 UNITS/ML, PEN SQ-INSULIN SCH ×4 (08:24→20:48)
[2018-04-14] MEDS: SPIRONOLACTONE 100 MG TABLET PO SCH (08:24)
[2018-04-14] MEDS: SODIUM CHLORIDE FLUSH 10ML SYR IVF SCH ×2 (08:25→20:49)
--- NOTE | 2018-04-14 08:51 | NUR ---
REC CHOPPED/THIN; swallow precaution sheet posted in room Addendum: 04/14/18 at [address] Amended: Links added.
[2018-04-14] MEDS ORDERED: CEFD300C37 PO (09:42)
[2018-04-14] MEDS ORDERED: ATOR-2 PO (09:42)
[2018-04-14] MEDS ORDERED: METR500T PO (09:42)
[2018-04-14] MEDS ORDERED: METO25TA35 PO (09:42)
[2018-04-14] MEDS ORDERED: LOPERAMIDE 2 MG CAPSULE ONE (10:06)
[2018-04-14] MEDS: LOPERAMIDE 2 MG CAPSULE PO PRN (10:07)
[2018-04-14 12:56] VITALS: BP 129/74
[2018-04-14 20:00] VITALS: BP 136/72
[2018-04-14] MEDS: ATORVASTATIN 80 MG TABLET PO SCH (20:48)
[2018-04-14] MEDS: ENOXAPARIN 40 MG/0.4 ML SQ SCH (20:48)
[2018-04-14] MEDS: ACETAMINOPHEN 325 MG TABLET PO PRN (22:24)
[2018-04-15 02:00] VITALS: BP 108/62
[2018-04-15] MEDS: LOPERAMIDE 2 MG CAPSULE PO PRN (03:09)
[2018-04-15] MEDS: METOPROLOL TARTRATE 25 MG TABLET PO SCH ×2 (06:29→17:16)
[2018-04-15] MEDS: LEVOTHYROXINE 100 MCG TABLET PO SCH (06:29)
[2018-04-15] MEDS: INSULIN LISPRO 100 UNITS/ML, PEN SQ-INSULIN SCH ×4 (07:00→20:38)
[2018-04-15 08:00] VITALS: BP 150/66
[2018-04-15] MEDS: SODIUM CHLORIDE FLUSH 10ML SYR IVF SCH ×2 (09:00→20:37)
[2018-04-15] MEDS: ASPIRIN 81 MG TABLET CHEW PO SCH (09:12)
[2018-04-15] MEDS: SPIRONOLACTONE 100 MG TABLET PO SCH (09:12)
[2018-04-15] MEDS: CEFDINIR 300 MG CAPSULE PO SCH ×2 (09:12→20:37)
[2018-04-15] MEDS: FLUOXETINE HCL 20 MG CAPSULE PO SCH (09:12)
[2018-04-15] MEDS: metroNIDAZOLE 500 MG TABLET PO SCH ×3 (09:12→20:37)
[2018-04-15] MEDS: INSULIN GLARGINE 100 UNITS/ML, PEN SQ-INSULIN SCH ×2 (09:20→20:38)
[2018-04-15 14:45] VITALS: BP 102/51
[2018-04-15 19:56] VITALS: BP 128/69
[2018-04-15] MEDS: ENOXAPARIN 40 MG/0.4 ML SQ SCH (20:37)
[2018-04-15] MEDS: ATORVASTATIN 80 MG TABLET PO SCH (20:37)
[2018-04-16] MEDS: LOPERAMIDE 2 MG CAPSULE PO PRN ×3 (02:47→21:06)
[2018-04-16] MEDS: ACETAMINOPHEN 325 MG TABLET PO PRN ×3 (02:47→21:06)
[2018-04-16 02:55] VITALS: BP 105/54
[2018-04-16 05:44] VITALS: BP 135/73
[2018-04-16] MEDS: LEVOTHYROXINE 100 MCG TABLET PO SCH (05:45)
[2018-04-16] MEDS: METOPROLOL TARTRATE 25 MG TABLET PO SCH ×2 (05:46→17:15)
[2018-04-16 08:03] VITALS: BP 115/71
[2018-04-16] MEDS: FLUOXETINE HCL 20 MG CAPSULE PO SCH (08:09)
[2018-04-16] MEDS: ASPIRIN 81 MG TABLET CHEW PO SCH (08:10)
[2018-04-16] MEDS: CEFDINIR 300 MG CAPSULE PO SCH ×2 (08:10→21:06)
[2018-04-16] MEDS: metroNIDAZOLE 500 MG TABLET PO SCH ×3 (08:10→21:06)
[2018-04-16] MEDS: INSULIN GLARGINE 100 UNITS/ML, PEN SQ-INSULIN SCH ×2 (08:10→21:07)
[2018-04-16] MEDS: SPIRONOLACTONE 100 MG TABLET PO SCH (08:10)
[2018-04-16] MEDS: INSULIN LISPRO 100 UNITS/ML, PEN SQ-INSULIN SCH ×4 (08:12→21:08)
[2018-04-16] MEDS: SODIUM CHLORIDE FLUSH 10ML SYR IVF SCH ×2 (08:16→21:09)
[2018-04-16 13:20] VITALS: BP 122/70
[2018-04-16 17:16] VITALS: BP 112/62
[2018-04-16 19:51] VITALS: BP 161/72
[2018-04-16] MEDS: ATORVASTATIN 80 MG TABLET PO SCH (21:06)
[2018-04-16] MEDS: ENOXAPARIN 40 MG/0.4 ML SQ SCH (21:07)
[2018-04-17 00:10] VITALS: BP 126/85
[2018-04-17] MEDS: ACETAMINOPHEN 325 MG TABLET PO PRN (04:23)
[2018-04-17 05:00] LABS: BASOPHILS # (AUTO) 0.04 x10^3/uL (0-0.1); BASOPHILS % (AUTO) 1 % (0-1); EOSINOPHILS # (AUTO) 0.09 x10^3/uL (0-0.4); EOSINOPHILS % (AUTO) 1 % (1-7); LYMPHOCYTES # (AUTO) 1.34 x10^3/uL (1-3.4); LYMPHOCYTES % (AUTO) 15 % (22-44); MD NO; MEAN CORPUSCULAR HEMOGLOBIN 29.2 pg (27.0-34.8); MEAN CORPUSCULAR HGB CONC 32.4 g/dL (32.4-35.8); MEAN CORPUSCULAR VOLUME 90.1 fL (80-100); MEAN PLATELET VOLUME 8.8 fL (7.4-10.4); MONOCYTES # (AUTO) 0.58 x10^3/uL (0.2-0.8); MONOCYTES % (AUTO) 7 % (2-9); NEUTROPHILS # (AUTO) 6.72 x10^3/uL (1.8-6.8); NEUTROPHILS % (AUTO) 77 % (42-75); PLATELET COUNT 343 x10^3/uL (130-400); RED BLOOD COUNT 3.17 x10^6/uL (3.82-5.3); RED CELL DISTRIBUTION WIDTH 13.3 % (9.6-15.2)
[2018-04-17 05:12] LABS: ALBUMIN 2.2 g/dL (3.4-5.0); ANION GAP 6 mmol/L (5-15); CALCIUM 8.3 mg/dL (8.5-10.1); CHLORIDE 104 mmol/L (98-107)
[2018-04-17 05:13] LABS: CREATININE 0.77 mg/dL (0.55-1.02)
[2018-04-17 05:19] VITALS: BP 151/75
[2018-04-17] MEDS: METOPROLOL TARTRATE 25 MG TABLET PO SCH ×2 (05:20→16:55)
[2018-04-17] MEDS: LEVOTHYROXINE 100 MCG TABLET PO SCH (05:21)
[2018-04-17 06:44] VITALS: BP 146/79
[2018-04-17] MEDS ORDERED: MAGNESIUM SULFATE 3 GM in SODIUM CHLORIDE 0.9% 100 ML IV ONE (08:00)
[2018-04-17] MEDS: ASPIRIN 81 MG TABLET CHEW PO SCH (08:11)
[2018-04-17] MEDS: FLUOXETINE HCL 20 MG CAPSULE PO SCH (08:11)
[2018-04-17] MEDS: CEFDINIR 300 MG CAPSULE PO SCH ×2 (08:11→20:36)
[2018-04-17] MEDS: metroNIDAZOLE 500 MG TABLET PO SCH ×3 (08:11→20:36)
[2018-04-17] MEDS: SPIRONOLACTONE 100 MG TABLET PO SCH (08:11)
[2018-04-17] MEDS: INSULIN LISPRO 100 UNITS/ML, PEN SQ-INSULIN SCH ×4 (08:12→21:57)
[2018-04-17] MEDS: INSULIN GLARGINE 100 UNITS/ML, PEN SQ-INSULIN SCH ×2 (08:12→21:57)
[2018-04-17] MEDS: SODIUM CHLORIDE FLUSH 10ML SYR IVF SCH ×2 (08:17→20:37)
[2018-04-17 14:30] VITALS: BP 152/78
[2018-04-17 18:37] VITALS: BP 145/76
--- NOTE | 2018-04-17 19:22 | NUR ---
REC CHOPPED/THIN; swallow precaution sheet posted at bedside Addendum: 04/17/18 at 1923 by SHARMIN CARDOZA STS Amended: Links added.
[2018-04-17] MEDS: ATORVASTATIN 80 MG TABLET PO SCH (20:36)
[2018-04-17] MEDS: ENOXAPARIN 40 MG/0.4 ML SQ SCH (20:36)
[2018-04-18 00:17] VITALS: BP 132/65
[2018-04-18] MEDS: LEVOTHYROXINE 100 MCG TABLET PO SCH (06:18)
[2018-04-18] MEDS: METOPROLOL TARTRATE 25 MG TABLET PO SCH ×2 (06:19→17:24)
[2018-04-18 06:53] VITALS: BP 162/74
[2018-04-18] MEDS: CEFDINIR 300 MG CAPSULE PO SCH (08:21)
[2018-04-18] MEDS: SPIRONOLACTONE 100 MG TABLET PO SCH (08:21)
[2018-04-18] MEDS: metroNIDAZOLE 500 MG TABLET PO SCH (08:21)
[2018-04-18] MEDS: ASPIRIN 81 MG TABLET CHEW PO SCH (08:21)
[2018-04-18] MEDS: FLUOXETINE HCL 20 MG CAPSULE PO SCH (08:21)
[2018-04-18] MEDS: INSULIN GLARGINE 100 UNITS/ML, PEN SQ-INSULIN SCH ×2 (08:22→20:56)
[2018-04-18] MEDS: SODIUM CHLORIDE FLUSH 10ML SYR IVF SCH ×2 (08:22→20:55)
[2018-04-18] MEDS: INSULIN LISPRO 100 UNITS/ML, PEN SQ-INSULIN SCH ×4 (08:22→20:56)
[2018-04-18] MEDS: ACETAMINOPHEN 325 MG TABLET PO PRN ×2 (11:45→22:04)
[2018-04-18] MEDS: ONDANSETRON 2MG/ML, 2ML IVPush PRN (11:45)
[2018-04-18 12:23] VITALS: BP 121/78
[2018-04-18 19:08] VITALS: BP 150/98
[2018-04-18 20:55] VITALS: BP 147/77
[2018-04-18] MEDS: ENOXAPARIN 40 MG/0.4 ML SQ SCH (20:55)
[2018-04-18] MEDS: ATORVASTATIN 80 MG TABLET PO SCH (20:55)
[2018-04-18] MEDS ORDERED: NITROGLYCERIN SINGLE TAB 0.4 MG SL ONE (21:00)
[2018-04-18] MEDS ORDERED: NITROGLYCERIN 0.4 MG BOTTLE (25 TABS) SL ONE (21:03)
[2018-04-18 21:24] VITALS: BP 150/78
[2018-04-18 21:48] LABS: TROPONIN I < 0.015 ng/mL (0.000-0.045)
[2018-04-19 01:16] VITALS: BP 141/64
[2018-04-19] MEDS: LEVOTHYROXINE 100 MCG TABLET PO SCH (05:55)
[2018-04-19] MEDS: METOPROLOL TARTRATE 25 MG TABLET PO SCH ×2 (05:55→16:25)
[2018-04-19 05:56] VITALS: BP 145/78
[2018-04-19 06:10] LABS: TROPONIN I < 0.015 ng/mL (0.000-0.045)
[2018-04-19 07:43] VITALS: BP 159/78
[2018-04-19] MEDS: ASPIRIN 81 MG TABLET CHEW PO SCH (08:37)
[2018-04-19] MEDS: SPIRONOLACTONE 100 MG TABLET PO SCH (08:37)
[2018-04-19] MEDS: FLUOXETINE HCL 20 MG CAPSULE PO SCH (08:37)
[2018-04-19] MEDS: INSULIN LISPRO 100 UNITS/ML, PEN SQ-INSULIN SCH ×4 (08:37→20:26)
[2018-04-19] MEDS: INSULIN GLARGINE 100 UNITS/ML, PEN SQ-INSULIN SCH ×2 (08:38→20:39)
[2018-04-19] MEDS: SODIUM CHLORIDE FLUSH 10ML SYR IVF SCH ×2 (08:38→20:27)
[2018-04-19] MEDS: ACETAMINOPHEN 325 MG TABLET PO PRN ×2 (10:57→16:29)
[2018-04-19 13:13] VITALS: BP 116/68
[2018-04-19] MEDS ORDERED: ASPI-515 PO (15:23)
[2018-04-19] MEDS ORDERED: FLUO20CA8 PO (15:23)
[2018-04-19 19:48] VITALS: BP 128/78
[2018-04-19] MEDS: ATORVASTATIN 80 MG TABLET PO SCH (20:27)
[2018-04-19] MEDS: ENOXAPARIN 40 MG/0.4 ML SQ SCH (20:27)
[2018-04-20 02:52] VITALS: BP 154/74
[2018-04-20] MEDS: ACETAMINOPHEN 325 MG TABLET PO PRN ×2 (04:38→08:20)
[2018-04-20] MEDS: METOPROLOL TARTRATE 25 MG TABLET PO SCH (05:21)
[2018-04-20] MEDS: LEVOTHYROXINE 100 MCG TABLET PO SCH (05:21)
[2018-04-20 05:27] LABS: CREATININE 0.96 mg/dL (0.55-1.02)
[2018-04-20 07:38] VITALS: BP 146/64
== END 2018-04-20 08:31 | DRG 853 ==
LOC: ED 08:40 → MERGE 09:20 → EDIP 09:20 → CCU 10:10 → 5SO 04-09 14:47 → 4EST 04-11 13:26
PROVIDERS: ADMIT Hospitalist; ATTEND Family Medicine
PROC: 0T9B70Z Drainage of Bladder with Drainage Device, Via Natural or Artificial Opening (ICD-10-PCS; principal; 2018-04-02)
PROC: 5A1955Z Respiratory Ventilation, Greater than 96 Consecutive Hours (ICD-10-PCS; 2018-04-02)
PROC: 0BH17EZ Insertion of Endotracheal Airway into Trachea, Via Natural or Artificial Opening (ICD-10-PCS; 2018-04-02)
PROC: 02H633Z Insertion of Infusion Device into Right Atrium, Percutaneous Approach (ICD-10-PCS; 2018-04-02)
PROC: 0B9J8ZZ Drainage of Left Lower Lung Lobe, Via Natural or Artificial Opening Endoscopic (ICD-10-PCS; 2018-04-03)
PROC: 0B958ZZ Drainage of Right Middle Lobe Bronchus, Via Natural or Artificial Opening Endoscopic (ICD-10-PCS; 2018-04-03)
DX: A41.9 Sepsis, unspecified organism (principal); E11.10 Type 2 diabetes mellitus with ketoacidosis without coma; I21.4 Non-ST elevation (NSTEMI) myocardial infarction; I63.411 Cerebral infarction due to embolism of right middle cerebral artery; J15.211 Pneumonia due to Methicillin susceptible Staphylococcus aureus; J69.0 Pneumonitis due to inhalation of food and vomit; J96.01 Acute respiratory failure with hypoxia; N17.0 Acute kidney failure with tubular necrosis; R09.2 Respiratory arrest; J44.0 Chronic obstructive pulmonary disease with (acute) lower respiratory infection; J44.1 Chronic obstructive pulmonary disease with (acute) exacerbation; G81.94 Hemiplegia, unspecified affecting left nondominant side; G91.9 Hydrocephalus, unspecified; G93.40 Encephalopathy, unspecified; J45.51 Severe persistent asthma with (acute) exacerbation; K92.2 Gastrointestinal hemorrhage, unspecified; Z99.11 Dependence on respirator [ventilator] status; D63.8 Anemia in other chronic diseases classified elsewhere; E03.9 Hypothyroidism, unspecified; E11.649 Type 2 diabetes mellitus with hypoglycemia without coma; E66.9 Obesity, unspecified; E78.5 Hyperlipidemia, unspecified; E87.5 Hyperkalemia; I11.9 Hypertensive heart disease without heart failure; I51.7 Cardiomegaly; Z79.4 Long term (current) use of insulin; Z90.710 Acquired absence of both cervix and uterus; R65.20 Severe sepsis without septic shock; Z51.5 Encounter for palliative care
CPT/HCPCS: 36415; 36600; 74018; 74230; 84145; 87400; 99291; J7613; 31622; 70450; 70551; 71045; 78452; 80048; 80053; 80061; 80307; 81001; 82040; 82550; 82565; 82803; 82962; 83605; 83735; 83880; 84100; 84439; 84443; 84478; 84481; 84484; 85014; 85018; 85025; 86850; 86900; 87040; 87070; 87077; 87081; 87086; 87102; 87186; 87205; 87324; 89055; 93005; 93017; 93306; 93880; 93970; 94002; 94003; 94640; G0378; J0610; J0696; J1650; J1815; J2020; J2250; J2405; J2704; J2785; J3010; J3475; J3486; J3490; J7060; J7070; 92523-GN; A9502; C9113; C9898; J1940; J2920; J2930; J7030; J7050; J7512; Q0177